=== PATIENT | male | born 1975 | race Caucasian/White ===

== ENCOUNTER 2017-01-30 00:37 | Emergency (ER) | payer OTHER ==
[~2017-01-30] VITALS: Ht 180.3 cm; Wt 85.0 kg
[~2017-01-30 00:37] MED LIST: CEPH500C3 PO; LORT5TAB PO; Z.0.NO CURRENT MEDS
[2017-01-30 00:57] VITALS: BP 147/96; PULSE 96; RESP 16; TEMP 98.9; O2SAT 96
[2017-01-30] MEDS ORDERED: SODIUM CHLORIDE 0.9% FLUSH 10 ML FLUSH IVF PRN (01:30)
[2017-01-30 01:49] VITALS: RESP 14; O2SAT 96
[2017-01-30 01:50] LABS: BASOPHIL # 0.1 TH/MM3 (0-0.2); BASOPHIL % 0.8 % (0.0-2.0); EOSINOPHIL # 0.1 TH/MM3 (0-0.4); EOSINOPHIL % 1.9 % (0.0-4.0); HEMATOCRIT 44.9 % (39.0-51.0); HEMO FLAGS DIFF FINAL; LYMPH % 24.7 % (9.0-44.0); LYMPHOCYTE # 1.6 TH/MM3 (1.0-4.8); MEAN CELL VOLUME 109.6 FL (80.0-100.0); MEAN CORPUSCULAR HEMOGLOBIN 37.9 PG (27.0-34.0); MEAN CORPUSCULAR HGB CONC 34.6 % (32.0-36.0); MONO % 9.4 % (0.0-8.0); NEUT % 63.2 % (16.0-70.0); PLATELET COUNT 198 TH/MM3 (150-450); RED CELL DISTRIBUTION WIDTH 15.2 % (11.6-17.2); WHITE BLOOD COUNT 6.3 TH/MM3 (4.0-11.0)
--- NOTE | 2017-01-30 01:58 | PD ---
HPI Chief Complaint: Chest Pain Time Seen by Provider: 01:16 Travel History International Travel<30 days: No Contact w/Intl Traveler<30days: No Traveled to known affect area: No History of Present Illness HPI This is a 41-year-old gentleman with a history of hypertension, who presents today with complaints of chest pressure and anxiety after being arrested. The patient states that he has a history of anxiety disorder. He also has history of hypertension. He states that when he was arrested he feels as though he had a panic attack. He reported chest tightness and pressure. He states he felt anxious. He states that they brought him here just to be evaluated to make sure he was okay. He is still anxious however is not having any discomfort at this time. When asked what blood pressure medicines he is on, patient states he did not recall. He states his girlfriend takes care of all of that. The patient does report that he drinks up to a gallon of rum per day. PFSH Past Medical History Cardiovascular Problems: Yes (HTN) Diminished Hearing: No Hypertension: Yes Tetanus Vaccination: > 5 Years Past Surgical History Other Surgery: Yes (RECONSTRUCTIVE SURGERY ON RIGHT FOOT) Social History Alcohol Use: Yes (1-2 BEERS DAILY X 2 YRS) Tobacco Use: Yes (OCCASIONAL "SOCIAL" SMOKER) Substance Use: Yes (MARIJUANA) Allergies-Medications (Allergen,Severity, Reaction): Coded Allergies: No Known Allergies (Verified , 01/30/17) Reported Meds & Prescriptions Reported Meds & Active Scripts Active No Active Prescriptions or Reported Medications Review of Systems Except as stated in HPI: all other systems reviewed are Neg General / Constitutional: No: Fever, Chills HENT: No: Headaches, Vertigo, Lightheadedness Cardiovascular: Positive: Chest Pain or Discomfort, Palpitations (chest pressure and tightness earlier when being arrested), No: Irregular Rhythm Respiratory: Positive: Shortness of Breath (with), No: Cough Gastrointestinal: No: Nausea ( his panic attack), Vomiting, Abdominal Pain Musculoskeletal: No: Myalgias, Weakness, Pain Neurologic: No: Weakness, Dizziness, Headache Psychiatric: Positive: Anxiety, Substance Abuse Physical Exam Narrative GENERAL: Well-nourished, well-developed patient, in no acute respiratory distress. SKIN: Focused skin assessment warm/dry. HEAD: Normocephalic/atraumatic. EYES: No scleral icterus. No injection or drainage. NECK: Supple, trachea midline. No JVD or lymphadenopathy. CARDIOVASCULAR: Regular rate and rhythm without murmurs, gallops, or rubs. RESPIRATORY: Breath sounds equal bilaterally. No accessory muscle use. GASTROINTESTINAL: Abdomen soft, non-tender, nondistended. MUSCULOSKELETAL: No cyanosis, or edema. NEUROLOGICAL: Awake and alert. Cranial nerves II through XII intact. Motor grossly within normal limits. Five out of 5 muscle strength in all muscle groups. Normal speech. Data Data Last Documented VS Vital Signs Date Time Temp Pulse Resp B/P Pulse Ox O2 Delivery O2 Flow Rate FiO2 01/30/17 01:49 14 96 Room Air 01/30/17 00:57 98.9 96 147/96 Orders Electrocardiogram (01/30/17 01:16) Basic Metabolic Panel (Bmp) (01/30/17 01:16) Ckmb (Isoenzyme) Profile (01/30/17 01:16) Complete Blood Count With Diff (01/30/17 01:16) Troponin I (01/30/17 01:16) Chest, Single Ap (01/30/17 01:16) Ecg Monitoring (01/30/17 01:16) Iv Access Insert/Monitor (01/30/17 01:16) Oximetry (01/30/17 01:16) Oxygen Administration (01/30/17 01:16) Sodium Chloride 0.9% Flush (Ns Flush) (01/30/17 01:30) CKMB (01/30/17 01:30) CKMB% (01/30/17 01:30) Labs Laboratory Tests Test 01/30/17 01:30 White Blood Count 6.3 TH/MM3 Red Blood Count 4.10 MIL/MM3 Hemoglobin 15.6 GM/DL Hematocrit 44.9 % Mean Corpuscular Volume 109.6 FL Mean Corpuscular Hemoglobin 37.9 PG Mean Corpuscular Hemoglobin 34.6 % Concent Red Cell Distribution Width 15.2 % Platelet Count 198 TH/MM3 Mean Platelet Volume 8.6 FL Neutrophils (%) (Auto) 63.2 % Lymphocytes (%) (Auto) 24.7 % Monocytes (%) (Auto) 9.4 % Eosinophils (%) (Auto) 1.9 % Basophils (%) (Auto) 0.8 % Neutrophils # (Auto) 4.0 TH/MM3 Lymphocytes # (Auto) 1.6 TH/MM3 Monocytes # (Auto) 0.6 TH/MM3 Eosinophils # (Auto) 0.1 TH/MM3 Basophils # (Auto) 0.1 TH/MM3 CBC Comment DIFF FINAL Differential Comment Sodium Level 139 MEQ/L Potassium Level 3.7 MEQ/L Chloride Level 104 MEQ/L Carbon Dioxide Level 23.0 MEQ/L Anion Gap 12 MEQ/L Blood Urea Nitrogen 9 MG/DL Creatinine 1.14 MG/DL Estimat Glomerular Filtration 70 ML/MIN Rate Random Glucose 86 MG/DL Calcium Level 8.6 MG/DL Total Creatine Kinase 343 U/L Creatine Kinase MB 1.9 NG/ML Creatine Kinase MB % 0.6 % Troponin I LESS THAN 0.02 NG/ML MDM Medical Decision Making Medical Screen Exam Complete: Yes Emergency Medical Condition: Yes Differential Diagnosis Anxiety versus ACS versus hyperventilation versus electrolyte abnormality Narrative Course 31-year-old gentleman under arrest presents with chest pain. The patient states he felt anxious and short of breath and had chest tightness. The patient has a history of hypertension. EKG shows no evidence of acute abnormalities. Cardiac enzymes are within normal limits. The patient will be cleared to with the police magistrate in custody. Blood pressure the time of discharge was 142/86. Diagnosis Primary Impression: Atypical chest pain Additional Impressions: Anxiety attack History of hypertension Scripts No Active Prescriptions or Reported Meds Disposition: [address] LAW ENFORCEMNT Condition: Stable Charly Walker MD Jan 30, 2017 01:58
--- NOTE | 2017-01-30 02:04 | RADRPT ---
EXAM DATE/TIME: 01/30/2017 01:52 [facility] COMPARISON: No previous studies available for comparison. INDICATIONS : Chest pain. MEDICAL HISTORY : None. SURGICAL HISTORY : None. ENCOUNTER: Initial ACUITY: 1 day PAIN SCORE: 3/10 LOCATION: Bilateral chest FINDINGS: A single view of the chest demonstrates the lungs to be symmetrically aerated without evidence of mas s, infiltrate or effusion. The cardiomediastinal contours are unremarkable. Osseous structures are intact. CONCLUSION: No acute disease. Bulmaro Mathis MD on January 30, 2017 at 2:04 Board Certified Radiologist. This report was verified electronically.
[2017-01-30 02:30] LABS: ANION GAP 12 MEQ/L (5-15); BLOOD UREA NITROGEN 9 MG/DL (7-18); CHLORIDE 104 MEQ/L (98-107); CREATINE KINASE 343 U/L (39-308); GLOMERULAR FILTRATION RATE 70 ML/MIN (>89); SODIUM (NA) 139 MEQ/L (136-145)
[2017-01-30 02:32] LABS: POTASSIUM 3.7 MEQ/L (3.5-5.1)
[2017-01-30 02:45] LABS: CKMB 1.9 NG/ML (0.5-3.6)
[2017-01-30 02:54] VITALS: BP 140/86; PULSE 70; RESP 16; O2SAT 95
--- NOTE | 2017-01-30 14:09 | EKG ---
Date Performed: 01/30/2017 Time Performed: 01:04:24 PTAGE: 41 years EKG: Sinus rhythm NONSPECIFIC T-WAVE ABNORMALITY BORDERLINE ECG NO PREVIOUS TRACING DOCTOR: Ariel Henderson Interpretating Date/Time 01/30/2017 14:08:17
== END 2017-01-30 03:55 ==
LOC: NEPE 00:37
DX: R07.89 Other chest pain (principal); F41.8 Other specified anxiety disorders; I10 Essential (primary) hypertension; R94.31 Abnormal electrocardiogram [ECG] [EKG]; Z72.0 Tobacco use; Z86.79 Personal history of other diseases of the circulatory system
CPT/HCPCS: 71010; 80048; 82550; 82552; 84484; 85025; 93005; 99284

== ENCOUNTER 2017-11-22 04:55 | Inpatient (IN) | payer OTHER ==
[~2017-11-22] VITALS: Ht 175.3 cm; Wt 83.0 kg
[2017-11-22 04:57] VITALS: BP 197/110; PULSE 88; RESP 18; TEMP 98.7; O2SAT 94
[2017-11-22] MEDS ORDERED: BLOOD PRESSURE PILL (05:07)
[2017-11-22] MEDS ORDERED: SODIUM CHLOR 0.9% 1000 ML INJ 1,000 ML IV SCH (05:15)
[2017-11-22] MEDS ORDERED: HYDROmorphone HCL PF 2 MG/ML VIAL IV PUSH ONE (05:15)
[2017-11-22] MEDS ORDERED: ONDANSETRON HCL 4 MG/2 ML VIAL IV ONE (05:15)
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
[2017-11-22 05:53] VITALS: BP 168/103; PULSE 67; RESP 18; O2SAT 98
--- NOTE | 2017-11-22 06:47 | RADRPT ---
EXAM DATE/TIME: 11/22/2017 06:35 [facility] COMPARISON: CHEST SINGLE AP, January 30, 2017, 1:52. INDICATIONS : Post chest tube placement, left side. MEDICAL HISTORY : None. SURGICAL HISTORY : None. ENCOUNTER: Initial ACUITY: 1 day PAIN SCORE: 0/10 LOCATION: Bilateral chest FINDINGS: Left sided chest tube has been placed. The subcutaneous air in the left chest wall. No pneumothorax i dentified. Minimal basal atelectasis in the lungs. CONCLUSION: 1. Placement of left chest tube with subcutaneous air in the left chest wall. No pneumothorax. James Bautista MD on November 22, 2017 at 6:44 Board Certified Radiologist. This report was verified electronically.
[2017-11-22] MEDS ORDERED: chlordiazePOXIDE 25 MG CAP PO SCH (07:30)
[2017-11-22] MEDS ORDERED: SODIUM CHLORIDE 0.9% FLUSH 10 ML FLUSH IV FLUSH PRN (07:30)
[2017-11-22] MEDS ORDERED: ENALAPRILAT 1.25 MG/ML VIAL IV PUSH PRN (07:30)
[2017-11-22] MEDS ORDERED: LORazepam 2 MG/ML VIAL IV PUSH ONE (07:45)
[2017-11-22] MEDS: MORPHINE SULFATE 2 MG/ML SYRINGE IV PUSH PRN (08:25)
[2017-11-22 08:30] VITALS: BP 170/98
[2017-11-22] MEDS: LIDOCAINE HCL 5% PATCH T-DERMAL SCH (08:35)
[2017-11-22] MEDS: FAMOTIDINE 20 MG TAB PO SCH ×2 (09:00→20:47)
[2017-11-22] MEDS: DOCUSATE SODIUM 50 MG/SENNA 8.6 MG TAB PO SCH ×2 (09:00→20:47)
[2017-11-22] MEDS: MAGNESIUM HYDROXIDE SUSP 30 ML CUP PO SCH ×2 (09:00→20:47)
[2017-11-22] MEDS: METHOCARBAMOL 500 MG TAB PO SCH ×2 (09:10→18:09)
[2017-11-22] MEDS: ACETAMINOPHEN 1000 MG/100 ML 100 ML IV SCH ×3 (09:11→20:50)
[2017-11-22] MEDS: MULTIVITAMIN INJ 10 ML, THIAMINE INJ 100 MG, FOLIC ACID INJ 1 MG in SODIUM CHLORID 0.9%... IV SCH (10:34)
[2017-11-22] MEDS: SODIUM CHLOR 0.9% 1000 ML INJ 1,000 ML IV SCH ×2 (10:35→17:30)
[2017-11-22 11:43] VITALS: BP 156/99; PULSE 68; RESP 19; TEMP 98.1; O2SAT 95
[2017-11-22] MEDS: LOSARTAN 25 MG TAB PO SCH (13:23)
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
[2017-11-22] MEDS ORDERED: MAGN30S PO (14:55)
[2017-11-22] MEDS ORDERED: PERI PO (14:55)
[2017-11-22 16:00] VITALS: BP 169/102; PULSE 77; RESP 19; TEMP 98.5; O2SAT 96
[2017-11-22] MEDS: chlordiazePOXIDE 25 MG CAP PO SCH (18:09)
[2017-11-22 20:07] VITALS: BP_DIAS 166; PULSE 83; RESP 18; TEMP 97.6; O2SAT 96
[2017-11-22] MEDS: REMOVE OLD LIDOCAINE PATCH T-DERMAL SCH (20:49)
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
[2017-11-23] VITALS: BP 165/98; PULSE 77; RESP 17; TEMP 97.4; O2SAT 96
[2017-11-23] MEDS: chlordiazePOXIDE 25 MG CAP PO SCH ×3 (00:09→17:11)
[2017-11-23] MEDS: METHOCARBAMOL 500 MG TAB PO SCH ×3 (00:09→17:12)
[2017-11-23] MEDS: ACETAMINOPHEN 1000 MG/100 ML 100 ML IV SCH ×3 (02:27→19:17)
[2017-11-23] MEDS: SODIUM CHLOR 0.9% 1000 ML INJ 1,000 ML IV SCH (02:28)
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
[2017-11-23 07:50] VITALS: BP 170/111; PULSE 80; RESP 17; TEMP 97.5; O2SAT 95
[2017-11-23] MEDS: LIDOCAINE HCL 5% PATCH T-DERMAL SCH (09:00)
[2017-11-23] MEDS: MAGNESIUM HYDROXIDE SUSP 30 ML CUP PO SCH ×2 (09:00→20:26)
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
[2017-11-23] MEDS: FAMOTIDINE 20 MG TAB PO SCH ×2 (09:18→20:27)
[2017-11-23] MEDS: DOCUSATE SODIUM 50 MG/SENNA 8.6 MG TAB PO SCH ×2 (09:19→20:26)
[2017-11-23] MEDS: LOSARTAN 25 MG TAB PO SCH (09:19)
[2017-11-23] MEDS: MORPHINE SULFATE 2 MG/ML SYRINGE IV PUSH PRN (09:21)
[2017-11-23] MEDS: MULTIVITAMIN INJ 10 ML, THIAMINE INJ 100 MG, FOLIC ACID INJ 1 MG in SODIUM CHLORID 0.9%... IV SCH (11:34)
[2017-11-23 12:07] VITALS: BP 179/114; PULSE 77; RESP 18; TEMP 97.4; O2SAT 99
[2017-11-23] MEDS ORDERED: HYDROmorphone HCL PF 0.5 MG/0.5 ML SYRINGE IV PUSH PRN (12:15)
[2017-11-23] MEDS ORDERED: LORazepam 2 MG/ML VIAL IV PUSH PRN ×2 (12:15)
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
[2017-11-23] MEDS: GABAPENTIN 300 MG CAP PO SCH ×2 (13:00→17:11)
[2017-11-23] MEDS: KETOROLAC TROMETHAMINE 30 MG/ML (IVP) VIAL IV PUSH SCH (13:00)
[2017-11-23] MEDS: ENOXAPARIN SODIUM 30 MG/0.3 ML SYRINGE SQ SCH (13:00)
[2017-11-23 16:06] VITALS: BP 176/104; PULSE 80; RESP 17; TEMP 97.8; O2SAT 97
[2017-11-23] MEDS: LORazepam 1 MG TAB PO SCH (17:11)
[2017-11-23 20:00] VITALS: BP 173/109; PULSE 82; RESP 18; TEMP 98.2; O2SAT 98
[2017-11-23] MEDS: VALPROIC ACID 250 MG CAP PO SCH (20:26)
[2017-11-23] MEDS: REMOVE OLD LIDOCAINE PATCH T-DERMAL SCH (20:31)
[2017-11-23 23:39] VITALS: BP 181/103; PULSE 80; RESP 18; TEMP 98.6; O2SAT 96
[2017-11-24] MEDS: LORazepam 1 MG TAB PO SCH ×4 (00:18→17:29)
[2017-11-24] MEDS: KETOROLAC TROMETHAMINE 30 MG/ML (IVP) VIAL IV PUSH SCH ×2 (00:18→12:59)
[2017-11-24] MEDS: METHOCARBAMOL 500 MG TAB PO SCH ×2 (00:19→09:00)
[2017-11-24] MEDS: chlordiazePOXIDE 25 MG CAP PO SCH ×3 (00:19→17:29)
[2017-11-24] MEDS: ENOXAPARIN SODIUM 30 MG/0.3 ML SYRINGE SQ SCH ×2 (00:20→13:09)
[2017-11-24] MEDS: ACETAMINOPHEN 1000 MG/100 ML 100 ML IV SCH ×2 (00:20→06:28)
[2017-11-24 03:50] VITALS: BP 165/109; PULSE 73; RESP 18; TEMP 97.7; O2SAT 97
[2017-11-24 05:25] LABS: AUTOMATED NEUTROPHIL # 4.2 TH/MM3 (1.8-7.7); BASOPHIL % 0.6 % (0.0-2.0); EOSINOPHIL # 0.1 TH/MM3 (0-0.4); EOSINOPHIL % 1.6 % (0.0-4.0); HEMATOCRIT 39.3 % (39.0-51.0); HEMOGLOBIN 13.9 GM/DL (13.0-17.0); LYMPH % 22.5 % (9.0-44.0); LYMPHOCYTE # 1.4 TH/MM3 (1.0-4.8); MEAN CELL VOLUME 104.9 FL (80.0-100.0); MEAN CORPUSCULAR HEMOGLOBIN 36.9 PG (27.0-34.0); MEAN CORPUSCULAR HGB CONC 35.2 % (32.0-36.0); MEAN PLATELET VOLUME 8.8 FL (7.0-11.0); MONOCYTE # 0.4 TH/MM3 (0-0.9); NEUT % 69.3 % (16.0-70.0); PLATELET COUNT 156 TH/MM3 (150-450); RED BLOOD COUNT 3.75 MIL/MM3 (4.50-5.90); RED CELL DISTRIBUTION WIDTH 13.7 % (11.6-17.2); WHITE BLOOD COUNT 6.1 TH/MM3 (4.0-11.0)
[2017-11-24 05:51] LABS: BICARBONATE 28.1 MEQ/L (21.0-32.0); CALCIUM 7.8 MG/DL (8.5-10.1); CREATININE 0.9 MG/DL (0.60-1.30)
[2017-11-24] MEDS: ONDANSETRON HCL 4 MG/2 ML VIAL IV PUSH PRN ×2 (06:32→20:22)
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
--- NOTE | 2017-11-24 06:50 | PD.ORT.PN ---
Subjective Subjective Remarks Pain controlled. Shoulder feels better with sling when sitting up or standing. Objective Vitals Vital Signs Date Time Temp Pulse Resp B/P (MAP) Pulse Ox O2 Delivery O2 Flow Rate FiO2 11/24/17 03:50 97.7 73 18 165/109 (127) 97 11/23/17 23:39 98.6 80 18 181/103 (129) 96 11/23/17 20:00 98.2 82 18 173/109 (130) 98 11/23/17 16:06 97.8 80 17 176/104 (128) 97 11/23/17 12:07 97.4 77 18 179/114 (135) 99 11/23/17 07:50 97.5 80 17 170/111 (130) 95 I/O 11/23/17 11/23/17 11/23/17 11/24/17 11/24/17 11/24/17 07:00 15:00 23:00 07:00 15:00 23:00 Intake Total 940 ml 2772 ml 480 ml Output Total 925 ml 1000 ml Balance 15 ml 1772 ml 480 ml Intake Oral 360 ml 800 ml 480 ml IV Total 580 ml 1972 ml Output Urine Total 900 ml 1000 ml Chest Tube Drainage Total 25 ml # Voids 3 # Bowel Movements 0 0 Result Diagram: 11/24/17 0338 11/24/17 0338 Imaging Last 72 hours Impressions Chest X-Ray 11/22/17 0603 Signed Impressions: Service Date/Time: Wednesday, November 22, 2017 06:35 - CONCLUSION: 1. Placement of left chest tube with subcutaneous air in the left chest wall. No pneumothorax. James Bautista MD Objective Remarks Right upper extremity: Full range of motion neurovascularly intact Left upper extremity: Deformity of left acromioclavicular joint with separation. Significant bruising and abrasions over shoulder. No pain with elbow or wrist motion. Intact sensation of her radial ulnar median nerve distributions with good capillary refills. Bilateral lower extremity's: Full range of motion neurovascular intact Assessment & Plan Assessment and Plan Left acromioclavicular joint separation Nonweightbearing left upper extremity Sling when sitting up or standing May need surgical intervention but will not be able to proceed with until abrasions and bruising improves. He is at high risk for wound complications if surgery is performed at this point When medically stable he is orthopedically cleared for discharge. We will follow-up in office in 10-14 days for reevaluation of skin and acromioclavicular joint. More than likely he will need surgery for stabilization of AC joint Jersey Howell Jr. Nov 24, 2017 06:50
[2017-11-24 08:00] VITALS: BP 173/102; PULSE 80; RESP 16; TEMP 97.7; O2SAT 100
[2017-11-24] MEDS: LOSARTAN 25 MG TAB PO SCH ×2 (09:00→20:20)
[2017-11-24] MEDS: FAMOTIDINE 20 MG TAB PO SCH ×2 (09:00→20:21)
[2017-11-24] MEDS: GABAPENTIN 300 MG CAP PO SCH ×3 (09:01→17:29)
[2017-11-24] MEDS: DOCUSATE SODIUM 50 MG/SENNA 8.6 MG TAB PO SCH ×2 (09:01→20:22)
[2017-11-24] MEDS: VALPROIC ACID 250 MG CAP PO SCH ×2 (09:01→20:21)
[2017-11-24] MEDS: MAGNESIUM HYDROXIDE SUSP 30 ML CUP PO SCH ×2 (09:02→20:21)
[2017-11-24] MEDS: LIDOCAINE HCL 5% PATCH T-DERMAL SCH (09:02)
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
[2017-11-24 12:00] VITALS: BP_SYST 182; BP_SYST 86; BP_DIAS 112; BP_DIAS 48; PULSE 78; PULSE 79; RESP 16; RESP 18; TEMP 98; TEMP 98.2; O2SAT 92; O2SAT 95
[2017-11-24] MEDS ORDERED: fentaNYL 25 MCG/HR PATCH T-DERMAL SCH (12:00)
[2017-11-24] MEDS: MULTIVITAMIN INJ 10 ML, THIAMINE INJ 100 MG, FOLIC ACID INJ 1 MG in SODIUM CHLORID 0.9%... IV SCH (13:02)
[2017-11-24 16:00] VITALS: BP 183/115; PULSE 75; RESP 18; TEMP 98; O2SAT 98
[2017-11-24 19:45] VITALS: BP 162/107; PULSE 77; RESP 19; TEMP 97.4; O2SAT 98
[2017-11-24] MEDS: REMOVE OLD LIDOCAINE PATCH T-DERMAL SCH (20:22)
[2017-11-24 22:30] VITALS: BP 140/75; PULSE 76; RESP 18; TEMP 97.6; O2SAT 96
[2017-11-25] MEDS: ENOXAPARIN SODIUM 30 MG/0.3 ML SYRINGE SQ SCH ×2 (01:11→13:05)
[2017-11-25] MEDS: chlordiazePOXIDE 25 MG CAP PO SCH ×2 (01:11→09:45)
[2017-11-25] MEDS: LORazepam 1 MG TAB PO SCH ×3 (01:11→12:00)
[2017-11-25] MEDS: KETOROLAC TROMETHAMINE 30 MG/ML (IVP) VIAL IV PUSH SCH (01:12)
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
[2017-11-25 06:39] VITALS: BP 167/112; PULSE 105; RESP 19; TEMP 98.9; O2SAT 99
[2017-11-25] MEDS ORDERED: LACTULOSE SYRUP 20 GM/30 ML CUP PO SCH (09:00)
[2017-11-25] MEDS: FAMOTIDINE 20 MG TAB PO SCH (09:45)
[2017-11-25] MEDS: LOSARTAN 25 MG TAB PO SCH (09:46)
[2017-11-25] MEDS: VALPROIC ACID 250 MG CAP PO SCH (09:46)
[2017-11-25] MEDS: DOCUSATE SODIUM 50 MG/SENNA 8.6 MG TAB PO SCH (09:46)
[2017-11-25] MEDS: GABAPENTIN 300 MG CAP PO SCH ×2 (09:46→13:05)
[2017-11-25] MEDS: LIDOCAINE HCL 5% PATCH T-DERMAL SCH (09:47)
[2017-11-25] MEDS: MAGNESIUM HYDROXIDE SUSP 30 ML CUP PO SCH (09:47)
[2017-11-25] MEDS ORDERED: PERC5TAB12 PO (10:02)
[2017-11-25] MEDS ORDERED: NEUR300C PO (10:02)
[2017-11-25] MEDS ORDERED: LIDO1ADH4 T-DERMAL (10:02)
[2017-11-25 10:36] VITALS: BP 160/102; PULSE 71; RESP 18; TEMP 97.9; O2SAT 96
[2017-11-25 10:54] VITALS: RESP 20
--- NOTE | 2017-11-25 12:25 | RADRPT ---
EXAM DATE/TIME: 11/25/2017 12:08 [facility] COMPARISON: CHEST SINGLE AP, November 25, 2017, 4:53. INDICATIONS : Chest tube removal. MEDICAL HISTORY : None. AC joint, rib fractures, pneumothorax SURGICAL HISTORY : None. ENCOUNTER: Initial ACUITY: 1 day PAIN SCORE: 4/10 LOCATION: Left chest FINDINGS: There is subcutaneous emphysema along the left hemithorax. I do not see a pneumothorax. Lungs are rick ar. Heart size normal. CONCLUSION: Subcutaneous air is noted as before. There is no evidence of pneumothorax. Russell Baez MD on November 25, 2017 at 12:21 Board Certified Radiologist. This report was verified electronically.
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
[2017-11-27] MEDS ORDERED: REMOVE OLD DURAGESIC (FENTANYL) PATCH T-DERMAL SCH (12:00)
== END 2017-11-25 13:54 | disposition home or self-care (01) | DRG 563 ==
LOC: NEPE 04:55 → NEDA 06:03 → N06A 08:50
PROVIDERS: ADMIT Surgery; ATTEND Surgery
DX: S43.102A Unspecified dislocation of left acromioclavicular joint, initial encounter (principal); S27.0XXA Traumatic pneumothorax, initial encounter; S27.321A Contusion of lung, unilateral, initial encounter; S22.42XA Multiple fractures of ribs, left side, initial encounter for closed fracture; I10 Essential (primary) hypertension; F10.20 Alcohol dependence, uncomplicated; Y92.481 Parking lot as the place of occurrence of the external cause; Y90.7 Blood alcohol level of 200-239 mg/100 ml; F17.210 Nicotine dependence, cigarettes, uncomplicated; S70.212A Abrasion, left hip, initial encounter; S50.312A Abrasion of left elbow, initial encounter; V29.9XXA Motorcycle rider (driver) (passenger) injured in unspecified traffic accident, initial encounter
CPT/HCPCS: 71045; 80048; 85025; 94150; 94667; 94668; 96361; 96374; 96375; J0131; J1170; J1650; J1885; J2060; J2270; J2405; J3411; J7030; J7040